=== PATIENT | female | born 1945 | race Caucasian/White ===

== ENCOUNTER 2016-12-18 05:53 | Day surgery (SDC) | payer MEDICARE ==
[~2016-12-18] VITALS: Ht 157.5 cm; Wt 54.4 kg
[~2016-12-18 05:53] MED LIST: ALTACE10 M1 PO; CALCIUM +D OR; ESTRACE VAG0.1 MG/GM VA; ESTRADIOL0.5 MG PO; FISH OIL300 MG OR; GLUCOSAMI11 OR; HYDROCHLOROT12.5 MG PO; MULTI VIT PO; VAGIFEM10 MCG VA; ZESTRIL10 M1 PO; ZOLOFT25 MG PO; [UNRECOGNIZED DRUG - CODE] OR
[2016-12-18 07:59] VITALS: BP 149/67
== END 2016-12-18 08:26 | disposition home or self-care (01) ==
LOC: ENDO 05:53
PROVIDERS: ATTEND Surgery
PROC: 0DJD8ZZ Inspection of Lower Intestinal Tract, Via Natural or Artificial Opening Endoscopic (ICD-10-PCS; principal; 2016-12-18)
DX: Z12.11 Encounter for screening for malignant neoplasm of colon (principal); Q43.9 Congenital malformation of intestine, unspecified; I10 Essential (primary) hypertension
CPT/HCPCS: G0121